=== PATIENT | male | born 1970 | race Caucasian/White ===

== ENCOUNTER → 2017-06-27 | Outpatient (CLI) | payer OTHER ==
--- NOTE | 2017-06-27 12:03 | DIAGNOSTIC IMAGING REPORT ---
MRI OF THE CERVICAL SPINE WITHOUT CONTRAST, FLEXION AND EXTENSION STUDY WITH CSF FLOW CLINICAL HISTORY: Neck and left arm pain. Left arm numbness. COMPARISON STUDY: No previous studies for comparison. TECHNIQUE: Utilizing a 1.5 Briana magnet and dedicated coil, multiplanar, multiecho imaging of the cervical spine was performed in the sagittal and axial planes utilizing T2 weighted sequences without intravenous contrast. Imaging was performed in the neutral, flexion and extension positions with CSF flow obtained. FINDINGS: There is straightening of the normal cervical lordosis. There are postoperative findings consistent with a C5-C6 and C6-C7 discectomy with interbody fusion. No marrow edema or marrow replacement is present. There are discogenic changes at the C4-C5 levels. Cervical cord signal and caliber are normal. There is no intracanalicular mass or fluid collection. CSF flow is suboptimally assessed on this exam due to artifact. However, there is diminished anterior CSF flow at the C3-C4 and C4-C5 levels. Vertebral soft tissues are unremarkable. C2-C3: The central canal and neural foramen are patent. C3-C4: Mild posterior disc osteophyte complex results in mild narrowing of the central canal which slightly increases with extension. There is severe left neural foraminal stenosis at this level due to facet arthrosis and uncovertebral hypertrophy. C4-C5: Posterior disc osteophyte complex results in moderate narrowing of the central canal which indents the ventral aspect of the cord. This improves with flexion and worsens with extension. There is no cord signal abnormality. There is mild to moderate bilateral neural foraminal narrowing at this level. C5-C6: Central canal and neural foramen are patent. C6-C7: The central canal and neural foramen are patent. C7-T1: The central canal and neural foramen are patent. IMPRESSION: 1. Status post C5-C6 and C6-C7 anterior discectomy and fusion. No evidence for cervical spine instability. 2. Moderate central canal stenosis at C4-C5 due to disc osteophyte complex which worsens with extension and improves with flexion. Mild central canal stenosis at C3-C4 which increases with extension. 3. Severe left neural foraminal stenosis at C3-C4 due to uncovertebral hypertrophy and facet arthrosis. 4. Suboptimal evaluation of CSF flow due to artifact. Suspected diminished anterior CSF flow at the C3-C4 and C4-C5 levels. Electronically signed by: Isai Scott M.D. 06/27/2017 12:01 PM Dictated Date/Time: 06/27/2017 11:47 AM
== END | disposition home or self-care (01) ==
LOC: C.MRIBC 09:05
PROVIDERS: ATTEND Neurological Surgery
DX: M25.78 Osteophyte, vertebrae (principal); M48.02 Spinal stenosis, cervical region; Z98.1 Arthrodesis status